=== PATIENT | male | born 1985 | race Caucasian/White ===

== ENCOUNTER 2017-01-13 00:59 | Emergency (ER) | payer SELFPAY ==
[~2017-01-13] VITALS: Ht 162.6 cm; Wt 47.3 kg
[~2017-01-13 00:59] MED LIST: CALCIUM600 M2 PO; FOSAMAX 70MG TA70 MG PO; HUMALOG100 U/ML SC; LEVEMIR100 U/M1 SC; MIRALAX17 GM/DOSE PO; MULTIPLE VITAMI1 CAP PO; NEURONTIN100 MG PO; PRILOSEC 20MG20 MG PO; PROGRAF1 MG PO; PULMOZYME IH; VITAMIN D31000 IU PO; VITAMIN E100 I3 PO; [UNRECOGNIZED DRUG - CODE] PO; [UNRECOGNIZED DRUG - CODE] PO
[2017-01-13 06:10] VITALS: BP 112/73
== END 2017-01-13 06:10 | disposition short-term general hospital (02) ==
LOC: ED 00:59
DX: J18.1 Lobar pneumonia, unspecified organism (principal); E11.649 Type 2 diabetes mellitus with hypoglycemia without coma; Z79.4 Long term (current) use of insulin; Z94.4 Liver transplant status; E84.9 Cystic fibrosis, unspecified; F17.210 Nicotine dependence, cigarettes, uncomplicated; R53.81 Other malaise; R09.02 Hypoxemia; A49.01 Methicillin susceptible Staphylococcus aureus infection, unspecified site
CPT/HCPCS: J1815; J1885; J1956; J2185; J3370; J7030; J7050